=== PATIENT | female | born 1950 | race Caucasian/White ===

== ENCOUNTER 2019-12-28 18:31 | Observation (INO) | payer MEDICARE, SELFPAY ==
[2019-12-28 18:43] VITALS: BP 134/75; PULSE 79; RESP 14; TEMP 37.1; O2SAT 95; BMI 28.3
[2019-12-28 19:06] LABS: Basophils # 0.1 10^3/uL (0.0-0.1); Basophils % 0.9 %; Eosinophils # 0.3 10^3/uL (0.0-0.8); Eosinophils % 2.3 %; Hematocrit 51.3 % (37.0-47.0); Hemoglobin 16.8 g/dL (11.5-15.3); Lymphocytes # 2.5 10^3/uL (0.8-4.8); Lymphocytes % 19.9 %; Mean Corpuscular HGB Conc 32.7 g/dL (30.0-36.0); Mean Corpuscular Hemoglobin 36.8 pg (28.0-34.0); Mean Corpuscular Volume 112.3 fL (81-99); Mean Platelet Volume 9.2 fL (7.4-10.4); Monocytes % 8.1 %; Neutrophils # 8.4 10^3/uL (1.8-7.7); Neutrophils % 68.4 %; Nucleated Red Blood Cells % 0 %; Platelet Count 378 10^3/cmm (130-400); Red Blood Count 4.57 10^6/uL (4.1-5.3); Red Cell Distribution Width 12.1 % (12.1-15.1); White Blood Count 12.3 10^3/uL (4.0-10.0)
[2019-12-28 19:18] LABS: Alanine Aminotransferase 35 U/L (0-33); Alkaline Phosphatase 129 IU/L (35-105); Aspartate Amino Transferase 52 U/L (0-32); Blood Urea Nitrogen 5 mg/dL (8-23); Calcium 9.8 mg/dL (8.5-10.5); Carbon Dioxide 28 mmol/L (22-29); Chloride 102 mmol/L (98-107); Creatinine Clr Calc Pharmacy 68.1498; Globulin 2.7 g/dL (1.3-4.6); Glomerular Filtration Rate 99.1 mL/min (90-130); Glucose 108 mg/dL (65-115); Lipase 23 U/L (13-60); Osmolality Calculated 292 mOsm/kg (285-295); Sodium 143 mmol/L (136-145); Total Protein 7.7 g/dL (6.6-8.7)
[2019-12-28 19:29] LABS: HCG, Serum Qual Negative (Negative)
[2019-12-28 21:22] VITALS: BP 160/83; PULSE 73; RESP 20; O2SAT 97
[2019-12-28 21:40] VITALS: BP 160/83; PULSE 84; RESP 16; O2SAT 98
--- NOTE | 2019-12-28 21:46 | USR_ITS ---
PROCEDURE INFORMATION: Exam: US Abdomen Limited, Right Upper Quadrant Exam date and time: 12/28/2019 10:31 PM Age: 69 years old Clinical indication: Abdominal pain; Acute; Patient HX: PT states was dx'd with hep c. Last test done was neg. TECHNIQUE: Imaging protocol: Real-time ultrasound of the abdomen with image documentation. Examination was focused on the right upper quadrant. COMPARISON: CT abdomen pelvis w con* [id number] 12/28/2019 10:44 PM FINDINGS: Liver: Again note of diffuse fatty infiltration of the liver with hepatomegaly. Slow monophasic hepatopetal portal venous flow. Antegrade hepatic venous flow right hepatic lobe. Gallbladder: Gallbladder contains a small amount of crystalline debris and/or sludge. No gallbladder wall thickening or pericholecystic fluid. Common bile duct: Mid common bile duct measurement sonographically 10 mm. Pancreas: Not adequately imaged due to bowel gas. Right kidney: Unremarkable. No mass. No hydronephrosis. Dimensions of the right kidney 11.9 cm x 4.4 cm x 5.1 cm. Other findings: Please review separate CT abdomen and pelvis examination report same date. US/US gall bladder [id number] IMPRESSION: 1. Gallbladder contains a small amount of sludge and/or crystalline debris. 2. Hepatomegaly with diffuse fatty infiltration. 3. Common bile duct ectasia.
--- NOTE | 2019-12-28 21:46 | CTR_ITS ---
PROCEDURE INFORMATION: Exam: CT Abdomen And Pelvis With Contrast Exam date and time: 12/28/2019 10:36 PM Age: 69 years old Clinical indication: Abdominal pain; Localized; Right upper quadrant (ruq); Prior surgery; Surgery date: 6+ months; Surgery type: Hyst; Patient HX: C/O ruq pain TECHNIQUE: Imaging protocol: Computed tomography of the abdomen and pelvis with intravenous contrast. Radiation optimization: All CT scans at this facility use at least one of these dose optimization techniques: automated exposure control; mA and/or kV adjustment per patient size (includes targeted exams where dose is matched to clinical indication); or iterative reconstruction. Contrast material: OMNI 300; Contrast volume: 95 ml; Contrast route: 20G; COMPARISON: No relevant prior studies available. RADIATION DOSE METRICS: Total DLP: 1082.48 mGy-cm FINDINGS: Liver: Geographic fatty infiltration of the liver with marked hepatomegaly. Small hypodense structure near the dome of the right hepatic lobe too small to characterize definitively at approximately 7 mm. Small cyst near the wander hepatis. Gallbladder and bile ducts: Gallbladder free of cholelithiasis. Common bile duct markedly ectatic measuring approximately upwards of 26 mm and tapering to 14 mm at the mid level with rapid transition at the ampullary of Vater. No visible choledocholithiasis. No pancreatic head mass. No visible ampullary neoplasm. Potential distal common bile duct stricture/stenosis. Pancreas: Pancreas unremarkable. No pancreatic ductal ectasia. Spleen: Mild splenomegaly. Spleen otherwise unremarkable. Adrenals: Normal. No mass. Kidneys and ureters: Simple renal cortical cysts inferior pole right kidney. No hydronephrosis or perinephric fluid bilaterally. No visible nephrolithiasis bilaterally. Left kidney unremarkable. Stomach and bowel: Diverticulosis coli without evidence for diverticulitis. Nonobstructive bowel pattern. No visible adynamic or reactive ileus. Appendix: No evidence of appendicitis. Intraperitoneal space: No visible intraperitoneal ascites. Vasculature: The abdominal aorta is nonaneurysmal but demonstrates moderate arterial sclerotic disease Portal vein patent but with evidence of portal venous hypertension. Perisplenic varices. Lymph nodes: Unremarkable. No enlarged lymph nodes. Bladder: Unremarkable as visualized. Reproductive: Status post hysterectomy. Bones/joints: Age-appropriate degenerative disease of the spine. Soft tissues: Heavy body habitus. CT/CT abdomen pelvis w con* [id number] IMPRESSION: 1. Common bile duct ectasia tapering rapidly at the ampulla of Vater. Potential distal common bile duct stricture/stenosis. No visible choledocholithiasis. 2. Marked hepatomegaly with geographic fatty infiltration in findings of early cirrhosis. 3. Evidence of early portal venous hypertension. 4. Splenomegaly. 5. Diverticulosis coli without visible evidence of diverticulitis. 6. Simple renal cortical cysts inferior pole right kidney. No follow-up recommended. 7. Other nonurgent, nonemergent, chronic, and age related findings as. discussed in text above COMMENTS: Consistent with the [employer]'s Incidental Findings Committee white paper (J Am Clotilde Radiol 2018): Any incidental renal lesion less than 1.0 cm or classified as too small to characterize, or any incidental cystic renal lesion characterized as simple-appearing, is likely benign. No follow-up imaging is recommended for these lesions per consensus recommendations based on imaging criteria. Radiation Dose CTDIVOL = (mGy): DLP = 1082.48 (mGy-cm)
[2019-12-28 21:57] LABS: Urine Appearance SL Hazy (CLEAR); Urine Color Dark Yellow (Yellow); pH Urine 5 (5-7)
[2019-12-28 21:58] LABS: Bilirubin Urine 1+ (NEGATIVE); Blood Urine Neg (Negative); Glucose Urine UA Norm (Normal); Ketones Urine Negative (Negative); Leukocyte Esterase Urine 1+ (Negative); Nitrate Urine Negative (Negative); Protein Urine Neg (Negative); Urobilinogen Urine 1 mg/dL (Negative)
--- NOTE | 2019-12-28 22:02 | W.ED.ABDPA2 ---
HPI - Abdominal Pain General: Chief Complaint: Abdominal Pain Stated Complaint: RUQ pain Time Seen by Provider: 12/28/19 21:23 History of Present Illness: HPI narrative: Ursula is a very nice 69-year-old female who comes in complaining of abdominal pain. Patient's pain is been going on for 1 month and has been intermittent in nature but has been much worse the past few days. She has had nausea vomiting, fevers or chills, diarrhea or constipation, urinary symptoms or otherwise. She states that sitting up and leaning forward makes her pain better. She unaware of anything that makes her pain worse. Patient states that she is not received any work-up for this and is unaware of any thing at home that helps with her pain. She admits she has not tried very much for this at home. Associated Symptoms: Denies chills, coffee ground emesis, constipation, GI cramping, diarrhea, dysuria, fever(s), heartburn, hematochezia, hematuria, hematemesis, melena, nausea, syncope and vomiting Review of Systems Const: Denies: fever(s), chills, body aches, fatigue, malaise or diaphoresis Eyes: Denies: change in vision, blurry vision, blind spots or photophobia ENMT: Denies: throat pain, odynophagia, hoarseness, swelling of lips/tongue, ear or mastoid pain, ear discharge, change in hearing or nasal discharge Card: Denies: chest pain, palpitations, irregular heart rhythm, edema, lightheadedness, syncope, pre-syncope, dyspnea on exertion or orthopnea Resp: Denies: dyspnea, productive cough, non-productive cough, wheezing, hemoptysis or chest congestion GI: Reports: abdominal pain; Denies: nausea, vomiting, hematemesis, coffee ground emesis, heartburn, diarrhea, constipation, GI cramping, hematochezia or melena : Denies: flank pain, dysuria, urinary frequency, urinary urgency or hematuria Musc: Denies: neck pain, back pain, extremity pain, extremity swelling, joint pain, joint swelling, joint redness, joint warmth or joint stiffness Skin/Breast: Denies: rash, pruritus, erythema, skin tenderness or jaundice Neuro: Denies: headache(s), numbness in extremities, weakness in extremities, sensory changes, lack of coordination, difficulty walking, dizziness, vertigo, confusion or Slurred speech present Pratik/Lymph: Denies: easy bruising, easy bleeding, petechiae, purpura or enlarged lymph nodes All/Imm: Denies: urticaria, throat swelling, tongue swelling, facial swelling or acute wheezing PFSH ED PFSH: Medical History (Updated 12/29/19 @ 00:17 by Katelynn Swift) Anxiety Depression Hepatitis C History of breast cancer Hypertension Hypothyroidism Surgical History (Updated 12/28/19 @ 22:04 by Katelynn Swift) H/O: hysterectomy Social History Smoking and tobacco status: never smoked Physical Exam Const: COMMON NORMALS: no acute distress, patient oriented x3, no limitations, healthy appearing and well nourished GENERAL APPEARANCE: cooperative, well kempt and well developed HENMT: COMMON NORMALS: normocephalic, atraumatic, external ears normal, EAC's normal and Normal external nose present HEAD & SCALP: normal to inspection, normocephalic and atraumatic FACE & SINUS: normal facial exam and face symmetric NOSE: Normal external nose present and Normal nares present EXTERNAL EAR: Yes external ears normal EXTERNAL AUDITORY CANAL: EAC's normal MOUTH: Normal oral and palatal mucosa present, lip normal and tongue normal Eye: COMMON NORMALS: Equal, round and reactive pupils present and conjunctivae normal GENERAL EYE: appearance normal, both eyes and all related structures ALIGNMENT: Yes alignment normal PERIORBITAL: periorbital findings normal EYELID: eyelids normal CONJUNCTIVA: Yes conjunctivae normal SCLERA: sclerae normal PUPIL: Yes Equal, round and reactive pupils present Neck/C-Spine: COMMON NORMALS: full ROM, no lymphadenopathy, supple, no meningeal signs and no JVD GENERAL: Yes normal visual inspection and Yes trachea midline Chest: COMMONS NORMALS: normal inspection of the chest and normal palpation of entire chest wall Resp: COMMON NORMALS: normal respiratory effort, No retractions and No use of accessory muscles EFFORT & INSPECTION: Yes able to speak in complete sentences and Yes symmetric chest movement AUSCULTATION: no crackles, no rales, no rhonchi and no wheezes Cardio: COMMON NORMALS: no JVD, regular rate, regular rhythm, S1 normal heart sound present and S2 normal heart sound present RATE: regular rate RHYTHM: regular rhythm HEART SOUNDS: S1 normal heart sound present, S2 normal heart sound present, no click, no gallops, no murmurs, no rubs and abnormal split S2 GI: COMMON NORMALS: No hepatosplenomegaly present PALPATION: Yes Firmness to palpation present (GI), Yes Tenderness to palpation present (GI) Details: RUQ (Moderate to severe), No Guarding due to palpation present (GI), No Rigid due to palpation, Yes No hepatosplenomegaly present, No Hernia present, No Palpable mass present and No Pulsatile mass present : COMMON NORMALS: Yes no CVA tenderness BLADDER/KIDNEY EXAM: Yes no CVA tenderness EXTERNAL FEMALE EXAM: No Hernia present Back/Pelvis: COMMON NORMALS: no CVA tenderness, thoracic and lumbar spine normal to inspection, no thoracic nor lumbar tenderness and thoraco-lumbar ROM normal Extremity: COMMON NORMALS: normal to inspection, full ROM, capillary refill normal, no joint enlargement, no clubbing, cyanosis or edema and no calf tenderness Neuro: COMMON NORMALS: patient oriented x3, CN's II-XII intact bilaterally, moves all extremities, no focal motor deficits and no sensory deficits noted MENINGEAL SIGNS: Yes no meningeal signs SPEECH: speech normal Psych: COMMON NORMALS: mental status grossly normal, Normal thought process present, cooperative, normal affect, speech normal and activity/motor behavior normal APPEARANCE: Yes well kempt SPEECH: Yes normal speech THOUGHT PROCESS: Normal thought process present Skin: COMMON NORMALS: no rashes or lesions noted, turgor normal, no jaundice, no petechiae and no mottling GENERAL SKIN EXAM: no rashes or lesions noted and turgor normal Course ED course: 0115 -Case was again reviewed with Dr. Fernandez he would like the patient to have an MRCP now to help better delineate what needs to be done moving forward. Vital Signs: Vital signs: Vital Signs Temperature 98.7 F 12/28/19 18:43 Pulse Rate 78 12/29/19 01:03 Respiratory Rate 18 12/29/19 01:03 Blood Pressure 124/70 12/29/19 01:03 Pulse Oximetry 96 12/29/19 01:03 MDM - Abdominal Pain MDM Narrative: Medical decision making narrative: Ursula is a nice 69-year-old female who comes in complaining of primarily right upper quadrant epigastric pain for a month. The pain has been intermittent but each time it is returned is become more severe. The patient states now for the past 2 to 3 days the pain has become almost incapacitating. Only sitting up in a certain position makes her pain tolerable. She is had no associated nausea or vomiting or fever. She denies any urinary symptoms or other complaints. The patient CT scan and ultrasound showed a dilated common bile duct but no definitive stone in the common bile duct. Because the patient has intolerable pain and such an abnormality of the common bile duct I have discussed the case with Dr. Fernandez who is agreeable to admission for observation and pain control and he will have an MRCP performed in the morning. Patient does have signs of UTI but her symptoms and location of pain are really not consistent with a UTI causing her pain. Further care be dictated by Dr. Fernandez in the morning. Lab Data: Attestation: I reviewed the patient's lab results. Labs: Lab Results 12/28/19 12/28/19 12/28/19 Range/Units 18:55 18:55 18:55 WBC 12.3 H (4.0-10.0) 10^3/ uL RBC 4.57 (4.1-5.3) 10^6/u L Hgb 16.8 H (11.5-15.3) g/dL Hct 51.3 H (37.0-47.0) % MCV 112.3 H (81-99) fL MCH 36.8 H (28.0-34.0) pg MCHC 32.7 (30.0-36.0) g/dL RDW 12.1 (12.1-15.1) % Plt Count 378 (130-400) 10^3/c mm MPV 9.2 (7.4-10.4) fL Neut % (Auto) 68.4 % Lymph % (Auto) 19.9 % Bos[place] % (Auto) 8.1 % Eos % (Auto) 2.3 % Baso % (Auto) 0.9 % Neut # (Auto) 8.4 H (1.8-7.7) 10^3/u L Lymph # (Auto) 2.5 (0.8-4.8) 10^3/u L Bosque # (Auto) 1.0 H (0.2-0.9) 10^3/u L Eos # (Auto) 0.3 (0.0-0.8) 10^3/u L Baso # (Auto) 0.1 (0.0-0.1) 10^3/u L Nucleated RBC % (a uto) 0 % Nucleated RBCs # 0.0 /100WBC Sodium 143 (136-145) mmol/L Potassium 4.0 (3.5-5.1) mmol/L Chloride 102 (98-107) mmol/L Carbon Dioxide 28 (22-29) mmol/L Anion Gap 17.0 (5-19) BUN 5 L (8-23) mg/dL Creatinine 0.6 (0.5-0.9) mg/dL GFR Calculation 99.1 (90-130) mL/min Glucose 108 (65-115) mg/dL Calculated Osmolal ity 292 (285-295) mOsm/k g Calcium 9.8 (8.5-10.5) mg/dL Total Bilirubin 1.0 (0.15-1.2) mg/dL AST 52 H (0-32) U/L ALT 35 H (0-33) U/L Alkaline Phosphata se 129 H (35-105) IU/L Total Protein 7.7 (6.6-8.7) g/dL Albumin 5.0 (3.5-5.2) g/dL Globulin 2.7 (1.3-4.6) g/dL Lipase 23 (13-60) U/L HCG, Qual Negative (Negative) Urine Color (Yellow) Urine Appearance (CLEAR) Urine pH (5-7) Ur Specific Gravit y (1.005-1.030) Urine Protein (Negative) Urine Glucose (UA) (Normal) Urine Ketones (Negative) Urine Blood (Negative) Urine Nitrate (Negative) Urine Bilirubin (NEGATIVE) Urine Urobilinogen (Negative) mg/dL Ur Leukocyte Ghazal ase (Negative) Urine RBC (0-2) /hpf Urine WBC (0-5) /hpf Ur Squamous Epith Cells (0-5) Urine Bacteria (NONE) Hyaline Casts Urine Mucus 12/28/19 Range/Units 21:40 WBC (4.0-10.0) 10^3/ uL RBC (4.1-5.3) 10^6/u L Hgb (11.5-15.3) g/dL Hct (37.0-47.0) % MCV (81-99) fL MCH (28.0-34.0) pg MCHC (30.0-36.0) g/dL RDW (12.1-15.1) % Plt Count (130-400) 10^3/c mm MPV (7.4-10.4) fL Neut % (Auto) % Lymph % (Auto) % Bosque % (Auto) % Eos % (Auto) % Baso % (Auto) % Neut # (Auto) (1.8-7.7) 10^3/u L Lymph # (Auto) (0.8-4.8) 10^3/u L Bosque # (Auto) (0.2-0.9) 10^3/u L Eos # (Auto) (0.0-0.8) 10^3/u L Baso # (Auto) (0.0-0.1) 10^3/u L Nucleated RBC % (a uto) % Nucleated RBCs # /100WBC Sodium (136-145) mmol/L Potassium (3.5-5.1) mmol/L Chloride (98-107) mmol/L Carbon Dioxide (22-29) mmol/L Anion Gap (5-19) BUN (8-23) mg/dL Creatinine (0.5-0.9) mg/dL GFR Calculation (90-130) mL/min Glucose (65-115) mg/dL Calculated Osmolal ity (285-295) mOsm/k g Calcium (8.5-10.5) mg/dL Total Bilirubin (0.15-1.2) mg/dL AST (0-32) U/L ALT (0-33) U/L Alkaline Phosphata se (35-105) IU/L Total Protein (6.6-8.7) g/dL Albumin (3.5-5.2) g/dL Globulin (1.3-4.6) g/dL Lipase (13-60) U/L HCG, Qual (Negative) Urine Color Dark yellow (Yellow) Urine Appearance Sl hazy (CLEAR) Urine pH 5 (5-7) Ur Specific Gravit y 1.020 (1.005-1.030) Urine Protein Neg (Negative) Urine Glucose (UA) Norm (Normal) Urine Ketones Negative (Negative) Urine Blood Neg (Negative) Urine Nitrate Negative (Negative) Urine Bilirubin 1+ H (NEGATIVE) Urine Urobilinogen 1 H (Negative) mg/dL Ur Leukocyte Ghazal ase 1+ H (Negative) Urine RBC 5-10 H (0-2) /hpf Urine WBC 10-15 H (0-5) /hpf Ur Squamous Epith Cells 0-4 H (0-5) Urine Bacteria 1+ H (NONE) Hyaline Casts 0-4 H Urine Mucus 2+ Imaging Data ^: CT Abd/Pel: Radiologist's impression: [address] [address] [address] Scan Report Signed Patient: Ursula Urbina Unit #: [id number] : 1950 Age/Sex: 69 / F ADM Date: 12/28/19 Loc: ER Room/Bed: Attending Dr: Ordering Provider/Ordering MD: Katelynn Swift DO Date of Service: 12/28/19 Procedure(s): CT abdomen pelvis w con* [id number] Accession Number(s): [id number] Report Number: [id number] PROCEDURE INFORMATION: Exam: CT Abdomen And Pelvis With Contrast Exam date and time: 12/28/2019 10:36 PM Age: 69 years old Clinical indication: Abdominal pain; Localized; Right upper quadrant (ruq); Prior surgery; Surgery date: 6+ months; Surgery type: Hyst; Patient HX: C/O ruq pain TECHNIQUE: Imaging protocol: Computed tomography of the abdomen and pelvis with intravenous contrast. Radiation optimization: All CT scans at this facility use at least one of these dose optimization techniques: automated exposure control; mA and/or kV adjustment per patient size (includes targeted exams where dose is matched to clinical indication); or iterative reconstruction. Contrast material: OMNI 300; Contrast volume: 95 ml; Contrast route: 20G; COMPARISON: No relevant prior studies available. RADIATION DOSE METRICS: Total DLP: 1082.48 mGy-cm FINDINGS: Liver: Geographic fatty infiltration of the liver with marked hepatomegaly. Small hypodense structure near the dome of the right hepatic lobe too small to characterize definitively at approximately 7 mm. Small cyst near the wander hepatis. Gallbladder and bile ducts: Gallbladder free of cholelithiasis. Common bile duct markedly ectatic measuring approximately upwards of 26 mm and tapering to 14 mm at the mid level with rapid transition at the ampullary of Vater. No visible choledocholithiasis. No pancreatic head mass. No visible ampullary neoplasm. Potential distal common bile duct stricture/stenosis. Pancreas: Pancreas unremarkable. No pancreatic ductal ectasia. Spleen: Mild splenomegaly. Spleen otherwise unremarkable. Adrenals: Normal. No mass. Kidneys and ureters: Simple renal cortical cysts inferior pole right kidney. No hydronephrosis or perinephric fluid bilaterally. No visible nephrolithiasis bilaterally. Left kidney unremarkable. Stomach and bowel: Diverticulosis coli without evidence for diverticulitis. Nonobstructive bowel pattern. No visible adynamic or reactive ileus. Appendix: No evidence of appendicitis. Intraperitoneal space: No visible intraperitoneal ascites. Vasculature: The abdominal aorta is nonaneurysmal but demonstrates moderate arterial sclerotic disease Portal vein patent but with evidence of portal venous hypertension. Perisplenic varices. Lymph nodes: Unremarkable. No enlarged lymph nodes. Bladder: Unremarkable as visualized. Reproductive: Status post hysterectomy. Bones/joints: Age-appropriate degenerative disease of the spine. Soft tissues: Heavy body habitus. CT/CT abdomen pelvis w con* [id number] IMPRESSION: 1. Common bile duct ectasia tapering rapidly at the ampulla of Vater. Potential distal common bile duct stricture/stenosis. No visible choledocholithiasis. 2. Marked hepatomegaly with geographic fatty infiltration in findings of early cirrhosis. 3. Evidence of early portal venous hypertension. 4. Splenomegaly. 5. Diverticulosis coli without visible evidence of diverticulitis. 6. Simple renal cortical cysts inferior pole right kidney. No follow-up recommended. 7. Other nonurgent, nonemergent, chronic, and age related findings as. discussed in text above COMMENTS: Consistent with the [employer]'s Incidental Findings Committee white paper (J Am Clotilde Radiol 2018): Any incidental renal lesion less than 1.0 cm or classified as too small to characterize, or any incidental cystic renal lesion characterized as simple-appearing, is likely benign. No follow-up imaging is recommended for these lesions per consensus recommendations based on imaging criteria. Radiation Dose CTDIVOL = (mGy): DLP = 1082.48 (mGy-cm) Dictated By: Tk Mcdowell Signed By: Tk Mcdowell Signed Date/Time: 12/28/192317 DD/ 16 US: Radiologist's impression: [facility] [address] [place] [address] Ultrasound Report Signed Patient: Ursula Urbina Unit #: [id number] : 1950 Age/Sex: 69 / F ADM Date: 12/28/19 Loc: ER Room/Bed: Attending Dr: Ordering Provider/Ordering MD: Katelynn Swift DO Date of Service: 12/28/19 Procedure(s): US gall bladder [id number] Accession Number(s): [id number] Report Number: [id number] PROCEDURE INFORMATION: Exam: US Abdomen Limited, Right Upper Quadrant Exam date and time: 12/28/2019 10:31 PM Age: 69 years old Clinical indication: Abdominal pain; Acute; Patient HX: PT states was dx'd with hep c. Last test done was neg. TECHNIQUE: Imaging protocol: Real-time ultrasound of the abdomen with image documentation. Examination was focused on the right upper quadrant. COMPARISON: CT abdomen pelvis w con* [id number] 12/28/2019 10:44 PM FINDINGS: Liver: Again note of diffuse fatty infiltration of the liver with hepatomegaly. Slow monophasic hepatopetal portal venous flow. Antegrade hepatic venous flow right hepatic lobe. Gallbladder: Gallbladder contains a small amount of crystalline debris and/or sludge. No gallbladder wall thickening or pericholecystic fluid. Common bile duct: Mid common bile duct measurement sonographically 10 mm. Pancreas: Not adequately imaged due to bowel gas. Right kidney: Unremarkable. No mass. No hydronephrosis. Dimensions of the right kidney 11.9 cm x 4.4 cm x 5.1 cm. Other findings: Please review separate CT abdomen and pelvis examination report same date. US/US gall bladder [id number] IMPRESSION: 1. Gallbladder contains a small amount of sludge and/or crystalline debris. 2. Hepatomegaly with diffuse fatty infiltration. 3. Common bile duct ectasia. Dictated By: Tk Mcdowell Signed By: Tk Mcdowell Signed Date/Time: 12/28/192352 DD/ 51 EKG Data ^: EKG 1: Attestation: I personally reviewed and interpreted this EKG as follows: EKG interpretation date: 12/28/19 EKG interpretation time: 23:04 Interpretation: Normal sinus rhythm at 72 beats a minute, no acute ST-T wave changes. Discharge Plan Discharge Patient Disposition: Placed in Observation Admit Provider: Jan Fernandez Clinical Impression: Intractable generalized abdominal pain, Common bile duct dilatation Condition: Stable Referrals: Aleksandr Farr MD [Primary Care Provider] - Coding Level of Care Code ED [place] Spray Unit Adjuster for Chg Fwd Exam Comprehensive
[2019-12-28 22:09] LABS: Bacteria Urine 1+; Hyaline Casts Urine 0-4; Mucus Urine 2+; Squamous Epithelial Cell Urine 0-4 (0-5)
[2019-12-28 22:16] VITALS: RESP 16; O2SAT 99
[2019-12-28] MEDS: morphine 4 mg/mL SDV 1 mL IVP (22:16)
[2019-12-28] MEDS: ondansetron 2 mg/ML SDV 2 mL 4 MG IVP (22:16)
[2019-12-28] MEDS: sodium chloride 0.9% 1,000 ML 999 ML IV (22:17)
[2019-12-28 22:21] VITALS: BP 123/67; PULSE 75; RESP 16; O2SAT 96
[2019-12-28] MEDS: iohexol 300 mg/mL 100 mL Btl IV (22:54)
[2019-12-28 23:35] VITALS: BP 123/67; PULSE 88; RESP 16; O2SAT 94
[2019-12-29] VITALS (11 sets, daily range): BP systolic 107–133; BP diastolic 64–74; PULSE 62–78; RESP 14–18; TEMP 36.6–36.8; O2SAT 93–98
[2019-12-29] MEDS: cefTRIAXone 1,000 MG in sodium chloride 0.9% (plus) 50 ML 100 MG IV (00:28)
[2019-12-29] MEDS: HYDROmorphone 1 mg/mL INJ 1 mL 0.5 MG IVP (00:43)
--- NOTE | 2019-12-29 00:57 | MRR_ITS ---
PROCEDURE INFORMATION: Exam: MR Abdomen Without Contrast Exam date and time: 12/29/2019 2:10 AM Age: 69 years old Clinical indication: Abdominal pain; Localized; Right upper quadrant (ruq); Additional info: Common bile duct enlargement on ultrasound and CT TECHNIQUE: Imaging protocol: MR of the abdomen without contrast. COMPARISON: CT abdomen pelvis w con* [id number] 12/28/2019 10:44 PM FINDINGS: Liver: There is inhomogeneous hepatic parenchyma compatible with fatty infiltration. Gallbladder and bile ducts: There is some intermediate signal intensity seen within the dependent portion of the gallbladder compatible with some gallbladder sludge. The common bile duct measures approximately 18 mm in its midportion appearing to taper to normal caliber near the ampulla. There is no evidence for choledocholithiasis. Pancreas: Unremarkable. No ductal dilation. Spleen: Unremarkable. No splenomegaly. Adrenals: Unremarkable. No mass. Kidneys and ureters: There is a 2.5 cm cystic mass seen on the lower pole of the right kidney. A contiguous 12 mm cyst is seen. Stomach and bowel: Visualized stomach and intestines are unremarkable. Intraperitoneal space: No free fluid. Arteries: No abdominal aortic aneurysm. Bones/joints: Unremarkable. Soft tissues: Unremarkable. MR/MR MRCP [id number] IMPRESSION: 1. There is a prominent common bile duct again seen measuring up to 18 mm in its midportion but appearing to tapering to normal caliber near the ampulla. There is no evidence for choledocholithiasis or extrinsic masses. 2. Fatty infiltration of the liver 3. Simple appearing cysts seen within the right kidney, the largest measuring 2.5 cm. No further workup needed. 4. Intermediate signal intensity material seen in the dependent portion of the gallbladder compatible with some gallbladder sludge.
[2019-12-29] MEDS: piperacillin-tazobactam 3.375 GM in sodium chloride 0.9% (plus) 50 ML IV ×2 (01:07→12:14)
[2019-12-29 01:32] LABS: Lactic Sepsis W/Reflex 0.7 mmol/L (0.5-2.2)
--- NOTE | 2019-12-29 04:28 | P.HP_ITS ---
Providers/Chief Complaint Primary Care Provider: Aleksandr Farr MD Chief Complaint: RUQ pain History of Present Illness Ursula Urbina is a 69 year old female who does not have significant past medical history came in with chief complaint of abdominal pain. Patient is stating that her symptoms started 1 month ago with right upper quadrant area pain which she is describing as sharp stabbing pain which gets worse on movement, she has not noticed any worsening of this pain with food, this pain would radiate towards her right shoulder, she has not noticed any fever, nausea vomiting or diarrhea. She denies any previous history of gallstones. She is endorsing history of irritable bowel syndrome. She does not smoke but drinks 3- 4 beers or whiskey 4-5 times a week. No recent traveling or camping. Diagnostics in the ER revealed normal hemodynamics, mild leukocytosis, abnormal transaminases with high alkaline phosphatase, MRCP was obtained which showed biliary duct dilation 18 mm in its midportion, no evidence of choledoc holithiasis or extrinsic masses Hepatosplenomegaly Her bilirubin is normal Dr. Fernandez has been notified and consulted Review of Systems Const: Reports: body aches and fatigue; Denies: fever(s) or chills Eyes: Denies: change in vision ENMT: Denies: throat pain Card: Denies: chest pain Resp: Denies: dyspnea GI: Reports: abdominal pain, heartburn, diarrhea, constipation, bloating and GI cramping; Denies: nausea or vomiting : Denies: flank pain or urinary frequency Musc: Denies: neck pain or extremity swelling Skin/Breast: Denies: rash Neuro: Denies: headache(s) or weakness in extremities Psych: Reports: anxiety and depression Endo: Denies: polyuria Pratik/Lymph: Denies: easy bruising All/Imm: Denies: urticaria Medications/Allergies Home Medications Medication Instructions Recorded Confirmed Last Taken Type Ranitidine 150 mg PO DAILY PRN 12/29/19 12/29/19 Unknown History amlodipine 5 mg PO DAILY 12/29/19 12/29/19 12/28/19 08:00 History celecoxib [Celebrex] 200 mg PO DAILY PRN 12/29/19 12/29/19 Unknown History cyclobenzaprine 10 mg PO QID PRN 12/29/19 12/29/19 Unknown History dextromethorphan-guaifenesin 1 tab PO Q12H PRN 12/29/19 12/29/19 Unknown History [Mucinex DM] hydrocodone-acetaminophen 1 tab PO Q8H PRN 12/29/19 12/29/19 Unknown History levothyroxine 150 mcg PO DAILY 12/29/19 12/29/19 12/28/19 08:00 History sertraline 100 mg PO DAILY 12/29/19 12/29/19 12/28/19 08:00 History Allergies Allergy/AdvReac Type Severity Reaction Status Date / Time amitriptyline AdvReac ADR-Confusi Verified 12/29/19 05:22 on PFSH Acute PFSH: Medical History (Updated 12/29/19 @ 06:30 by Robert Vela MD) Anxiety Depression Hepatitis C Self recovered History of breast cancer Infiltrating adenocarcinoma of left breast Hypertension Hypothyroidism Splenomegaly Surgical History H/O: hysterectomy Family History Denies family history of Hyperlipidemia Lung disease Hypertension Stroke Social History (Updated 12/29/19 @ 06:30 by Robert Vela MD) Smoking and tobacco status: never smoked Alcohol intake: current Alcohol use comment: Patient drinks 4-5times a week, 3- 4 drinks of beer or wine Substance/Drug Use: never Household members: family Housing: House Vitals/I&O/Wt Last Vital Signs Temp 98.7 F 12/28/19 18:43 Pulse 72 12/29/19 04:05 Resp 16 12/29/19 04:05 BP 107/74 12/29/19 04:05 Pulse Ox 98 12/29/19 04:05 12/28/19 12/28/19 12/29/19 14:59 22:59 06:59 Intake Total 1100 / 1100 Balance 1100 / 1100 Weight last 48 hrs Weight 77.111 kg Physical Exam Narrative: EXAM NARRATIVE: Head to toe examination Patient is lying comfortably in her bed S1, S2 no tachycardia No signs of heart failure Carmen sign is negative, no CVA tenderness, bowel sound present abdomen is soft nontender visceral obesity Neurologically nonfocal exam EOMI, PERRLA Lungs are clear to auscultation Appropriate mood and affect Skin does not show ischemia or gangrene or ulcer Lower extremity no edema Nonicteric Data : 12/28/19 18:55 12/28/19 18:55 A&P Assessment and plan (1) Intractable generalized abdominal pain: Status: Acute (2) Common bile duct dilatation: Status: Acute (3) Hepatitis C: Status: Acute (4) Portal hypertension: Status: Acute (5) Hepatomegaly: Status: Acute (6) Diverticulosis: Status: Acute (7) Splenomegaly: Status: Acute Additional A&P Information Common bile duct dilation with right upper quadrant discomfort I believe she has hepatic steatosis which is stretching liver capsule with underlying portal hypertension Patient is stating that her hepatitis C self recovered: she never required any treatment She denies history of diabetes MRCP did not reveal choledocholithiasis however CBD dilation noted Carmen sign is negative, gallbladder ultrasound is revealing biliary sludge, I will get HIDA scan N.p.o. IV fluid resuscitation Dr. Fernandez has been consulted No signs of cholangitis, she has received Zosyn, she does not have sepsis, her leukocytosis is most likely stress related We will discontinue antibiotic Check hepatitis B and C panel, A1c Hypothyroidism: Continue levothyroxine 150 mcg per GERD: Continue Protonix 40mg daily Diverticulosis: No active bleed N.p.o. Full code DVT prophylaxis Patient was counseled on cessation of alcohol to prevent alcohol induced liver cirrhosis, I will start her on thiamine folic acid Attestations Medical Necessity Statement*: Anticipating discharge in less than 48 hours currently need HIDA scan to rule out gallstones She has abnormal transaminases without any signs of cholangitis Time Spent in Patient Care: (>than 50% of time spent in counselling and/or direct pt care on unit) . 50 Coding Level of Care Code Acute Skating Rink Ice Maker for Chg Fwd Diagnoses Intractable generalized abdominal pain R10.84 Common bile duct dilatation K83.8 Hepatitis C B19.20 Portal hypertension K76.6 Hepatomegaly R16.0 Diverticulosis K57.90 Splenomegaly R16.1
--- NOTE | 2019-12-29 04:47 | NM_ITS ---
WS: [id number] NUCLEAR MEDICINE HIDA SCAN WITH GALLBLADDER EJECTION FRACTION HISTORY: CBD dilation and biliary sludge COMPARISON: None available. TECHNIQUE: The patient was intravenously injected with 7.4 mCi of TC99m Mebrofenin. Immediate imaging over the right upper quadrant was followed by 5 minute image and additional images for a total of 60 minutes. Normal uptake of radiotracer throughout the liver. Liver is enlarged. Activity identified in the gallbladder at 10 minutes and well distended by 60 minutes. Activity in the proximal small bowel was seen by 40 minutes. Good washout of the radiotracer from the liver by 60 minutes. The patient then drank 8 ounces of Ensure Plus. Ejection fraction at 60 minutes was 79%. Normal GB ej ection fraction is 35-75%. Post fatty meal symptoms: None. NM/NM hepatobiliary w phar* [id number] IMPRESSION: 1. Normal HIDA scan. 2. Normal gallbladder ejection fraction.
[2019-12-29] MEDS: morphine 4 mg/mL SDV 1 mL IVP (05:00)
[2019-12-29] MEDS: dextrose 5%-sod chloride 0.45% 1,000 ML 100 ML IV (05:09)
[2019-12-29 06:52] LABS: Lipase 68 U/L (13-60)
[2019-12-29 07:31] LABS: Estmated Average Glucose 114; Hemoglobin A1C 5.6 % (4.0-6.0)
[2019-12-29 07:38] LABS: Hepatitis B Surface Antigen Non-Reactive (Nonreactive)
[2019-12-29] MEDS: pantoprazole DR 40 mg Tablet PO (08:46)
[2019-12-29] MEDS: levothyroxine 150 mcg Tablet PO (08:46)
[2019-12-29 09:04] LABS: Hepatitis C Virus Antibody Reactive (Nonreactive)
--- NOTE | 2019-12-29 09:51 | PC.CHAP ---
Pastoral Care Encounter/Spiritual Assessment Type of Contact [] Declined charting clerk visit [] Patient/Family/Request visit [] Outpatient visit [] Follow-up visit [] Physician referral [] Code/Alert [x] Routine visit [] Staff referral [] Actively dying [] Patient sleeping [] Family support [] [] Out of room [] Palliative care [] [] Receiving care in room [] Pre-surgical visit [] Trauma [] Long length of stay [] ICU visit [] Other: Relational/Emotional Strength [] Patient feels connected with others/family/visitors/staff [] Distress [] Loneliness/isolation [] Abandonment Spirituality of Patient [] Person of Alondra [] Attends Mosque of their Alondra [] Believes in Prayer [] Reads Bible or Faith materials [] There are Spiritual issues to be addressed Brim Edge Trimmer Interventions [x] Prayer [] Active listening [] Non-anxious presence [] Spiritual/emotional support [] Crisis/trauma care [] Spiritual counseling [] Bereavement support [] Provided bereavement packet [] Provided Bible/devotional materials [] Provided toy/stuffed animal, coloring book to patient or family member [] Provided Communion [] Anointing/[place] [] Salvation [x] Completed spiritual assessment [] Other: Impact on Illness or Injury [] Angry [] Fearful [] Anxious [] Often cries [] Exhaustion [] Unable to work [] Unable to attend baptist [] Unable to walk/stand [] Unable to read [] Unable to drive [] Unable to eat/drink [] Unable to sleep [] Unable to be with family [] Patient intubated [] Other: Summary Patient resting well. Time spent with patient 5 min
[2019-12-29 12:15] LABS: Alanine Aminotransferase 27 U/L (0-33); Albumin Level 3.8 g/dL (3.5-5.2); Alkaline Phosphatase 102 IU/L (35-105); Anion Gap 20.8 (5-19); Aspartate Amino Transferase 47 U/L (0-32); Blood Urea Nitrogen 5 mg/dL (8-23); Calcium 8.6 mg/dL (8.5-10.5); Carbon Dioxide 20 mmol/L (22-29); Chloride 105 mmol/L (98-107); Creatinine Clr Calc Pharmacy 68.1498; Gamma Glutamyl Transferase 124 U/L (5-36); Globulin 2.7 g/dL (1.3-4.6); Glomerular Filtration Rate 99.1 mL/min (90-130); Glucose 115 mg/dL (65-115); Osmolality Calculated 291 mOsm/kg (285-295); Potassium 3.8 mmol/L (3.5-5.1); Sodium 142 mmol/L (136-145); Total Bilirubin 0.7 mg/dL (0.15-1.2); Total Protein 6.5 g/dL (6.6-8.7)
--- NOTE | 2019-12-29 14:52 | P.DS_ITS ---
Discharge Providers Date of Admission: 12/29/19 04:22 Date of Discharge: December 29, 2019 Attending Provider at Admission: Robert Vela MD Attending Provider at Discharge: Robert Vela MD Primary Care Provider: Aleksandr Farr MD Diagnoses at Discharge Discharge Diagnosis (1) Intractable generalized abdominal pain: Status: Acute (2) Common bile duct dilatation: Status: Acute (3) Hepatitis C: Status: Acute Problem details: Self recovered (4) Portal hypertension: Status: Acute (5) Hepatomegaly: Status: Acute (6) Diverticulosis: Status: Acute (7) Splenomegaly: Status: Acute Reason for Visit Reason for Visit: RUQ pain Hospital Course Discharge Summary: This is a 69-year-old female with no significant past medical history, 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 Patient stated that she fell about a month ago, since then she has had intermittent right upper quadrant right rib pain Patient was admitted for concerns for right upper quadrant pain, CT scan of the abdomen showed common bile duct ectasia tapering rapidly at the upper levator, potential distal common bile duct strictures/stenosis, no visible choledocholithiasis, marked hepatomegaly, with geographic fatty infiltration findings of early cirrhosis, evidence of early portal venous hypertension, splenomegaly. MRCP of the abdomen showed prominent common bile duct again seen, measuring 18 mm in its midportion, but appearing to taper to normal caliber near the ampulla, no evidence of choledocholithiasis or extrinsic masses, fatty infiltration of the liver, likely some gallbladder sludge. Patient had a normal HIDA scan, normal gallbladder ejection fraction. White blood cell count admission was 12.3, GGT 124, AST 47, ALT 27, alk phos 102, lipase 68. Patient received IV fluids, antibiotic therapy, patient clinically improved. Likely patient's pain was related to right rib pain after her fall, and some gastritis. She also had evidence of urinary tract infection. Patient was discharged with pain control for her right rib pain, Toradol, instructions for deep breathing exercises after a bruised rib. For gastritis she was discharged on Protonix 40 daily. Lastly patient was found to be hepatitis C positive, with above findings, patient was advised to follow-up with Dr. Starr for treatment for her hepatitis C. Patient is to follow-up with Dr. Fernandez in 1 month. Physical Exam Const: COMMON NORMALS: no acute distress and patient oriented x3 HENMT: COMMON NORMALS: normocephalic HEAD & SCALP: normocephalic Neck/C-Spine: COMMON NORMALS: no JVD Resp: COMMON NORMALS: normal respiratory effort, No retractions, No use of accessory muscles and clear to auscultation bilaterally AUSCULTATION: clear to auscultation bilaterally Cardio: COMMON NORMALS: no JVD, regular rate, regular rhythm, S1 normal heart sound present and S2 normal heart sound present RATE: regular rate RHYTHM: regular rhythm HEART SOUNDS: S1 normal heart sound present and S2 normal heart sound present GI: COMMON NORMALS: Normal to inspection, nondistended, normoactive bowel sounds present, Soft to palpation, no masses and no bruits PALPATION: Yes Soft to palpation and Yes Tenderness to palpation present (GI) Details: RUQ OTHER: Patient has tenderness around lower rib border Extremity: COMMON NORMALS: capillary refill normal, no clubbing, cyanosis or edema, no calf tenderness and no pedal edema Neuro: COMMON NORMALS: patient oriented x3 Psych: COMMON NORMALS: mental status grossly normal Discharge Data Data Completed and Pending: Completed Studies During Hospitalization Category Date Time Status CT abdomen pelvis w con* [id number] Stat Cat Scan 12/28/19 21:46 Completed MR MRCP [id number] Sta t MRI 12/29/19 00:57 Completed NM hepatobiliary w phar* [id number] Rout ine Nuc Med 12/29/19 04:47 Completed US gall bladder 7 [id number] Urgent Ultrasound 12/28/19 21:46 Completed Pending at discharge Category Date Time Status Complete Blood Co unt w/Auto AM LABS Lab 12/30/19 04:00 Ordered Comprehensive Met abolic Panel AM LA BS Lab 12/30/19 04:00 Ordered Labs from last 24 hours 12/29/19 12/29/19 12/29/19 06:15 06:15 06:15 WBC RBC Hgb Hct MCV MCH MCHC RDW Plt Count MPV Neut % (Auto) Lymph % (Auto) [place] % (Auto) Eos % (Auto) Baso % (Auto) Neut # (Auto) Lymph # (Auto) [place] # (Auto) Eos # (Auto) Baso # (Auto) Nucleated RBC % (a uto) Nucleated RBCs # Sodium 142 Potassium 3.8 Chloride 105 Carbon Dioxide 20 L Anion Gap 20.8 H BUN 5 L Creatinine 0.6 GFR Calculation 99.1 Glucose 115 Estimat Average Gl ucose Hemoglobin A1c Calculated Osmolal ity 291 Lactic Acid Calcium 8.6 Total Bilirubin 0.7 Direct Bilirubin 0.20 Indirect Bilirubin 0.50 GGT 124 H AST 47 H ALT 27 Alkaline Phosphata se 102 Total Protein 6.5 L Albumin 3.8 Globulin 2.7 Lipase HCG, Qual Urine Color Urine Appearance Urine pH Ur Specific Gravit y Urine Protein Urine Glucose (UA) Urine Ketones Urine Blood Urine Nitrate Urine Bilirubin Urine Urobilinogen Ur Leukocyte Ghazal ase Urine RBC Urine WBC Ur Squamous Epith Cells Urine Bacteria Hyaline Casts Urine Mucus Hep Bs Antigen Non-reactive Hepatitis C Antibo dy Reactive H 12/29/19 12/29/19 12/29/19 06:15 06:15 01:06 WBC RBC Hgb Hct MCV MCH MCHC RDW Plt Count MPV Neut % (Auto) Lymph % (Auto) [place] % (Auto) Eos % (Auto) Baso % (Auto) Neut # (Auto) Lymph # (Auto) [place] # (Auto) Eos # (Auto) Baso # (Auto) Nucleated RBC % (a uto) Nucleated RBCs # Sodium Potassium Chloride Carbon Dioxide Anion Gap BUN Creatinine GFR Calculation Glucose Estimat Average Gl ucose 114 Hemoglobin A1c 5.6 Calculated Osmolal ity Lactic Acid 0.7 Calcium Total Bilirubin Direct Bilirubin Indirect Bilirubin GGT AST ALT Alkaline Phosphata se Total Protein Albumin Globulin Lipase 68 H HCG, Qual Urine Color Urine Appearance Urine pH Ur Specific Gravit y Urine Protein Urine Glucose (UA) Urine Ketones Urine Blood Urine Nitrate Urine Bilirubin Urine Urobilinogen Ur Leukocyte Ghazal ase Urine RBC Urine WBC Ur Squamous Epith Cells Urine Bacteria Hyaline Casts Urine Mucus Hep Bs Antigen Hepatitis C Antibo dy 12/28/19 12/28/19 12/28/19 21:40 18:55 18:55 WBC RBC Hgb Hct MCV MCH MCHC RDW Plt Count MPV Neut % (Auto) Lymph % (Auto) [place] % (Auto) Eos % (Auto) Baso % (Auto) Neut # (Auto) Lymph # (Auto) [place] # (Auto) Eos # (Auto) Baso # (Auto) Nucleated RBC % (a uto) Nucleated RBCs # Sodium 143 Potassium 4.0 Chloride 102 Carbon Dioxide 28 Anion Gap 17.0 BUN 5 L Creatinine 0.6 GFR Calculation 99.1 Glucose 108 Estimat Average Gl ucose Hemoglobin A1c Calculated Osmolal ity 292 Lactic Acid Calcium 9.8 Total Bilirubin 1.0 Direct Bilirubin Indirect Bilirubin GGT AST 52 H ALT 35 H Alkaline Phosphata se 129 H Total Protein 7.7 Albumin 5.0 Globulin 2.7 Lipase 23 HCG, Qual Negative Urine Color Dark yellow Urine Appearance Sl hazy Urine pH 5 Ur Specific Gravit y 1.020 Urine Protein Neg Urine Glucose (UA) Norm Urine Ketones Negative Urine Blood Neg Urine Nitrate Negative Urine Bilirubin 1+ H Urine Urobilinogen 1 H Ur Leukocyte Ghazal ase 1+ H Urine RBC 5-10 H Urine WBC 10-15 H Ur Squamous Epith Cells 0-4 H Urine Bacteria 1+ H Hyaline Casts 0-4 H Urine Mucus 2+ Hep Bs Antigen Hepatitis C Antibo dy 12/28/19 18:55 WBC 12.3 H RBC 4.57 Hgb 16.8 H Hct 51.3 H MCV 112.3 H MCH 36.8 H MCHC 32.7 RDW 12.1 Plt Count 378 MPV 9.2 Neut % (Auto) 68.4 Lymph % (Auto) 19.9 [place] % (Auto) 8.1 Eos % (Auto) 2.3 Baso % (Auto) 0.9 Neut # (Auto) 8.4 H Lymph # (Auto) 2.5 [place] # (Auto) 1.0 H Eos # (Auto) 0.3 Baso # (Auto) 0.1 Nucleated RBC % (a uto) 0 Nucleated RBCs # 0.0 Sodium Potassium Chloride Carbon Dioxide Anion Gap BUN Creatinine GFR Calculation Glucose Estimat Average Gl ucose Hemoglobin A1c Calculated Osmolal ity Lactic Acid Calcium Total Bilirubin Direct Bilirubin Indirect Bilirubin GGT AST ALT Alkaline Phosphata se Total Protein Albumin Globulin Lipase HCG, Qual Urine Color Urine Appearance Urine pH Ur Specific Gravit y Urine Protein Urine Glucose (UA) Urine Ketones Urine Blood Urine Nitrate Urine Bilirubin Urine Urobilinogen Ur Leukocyte Ghazal ase Urine RBC Urine WBC Ur Squamous Epith Cells Urine Bacteria Hyaline Casts Urine Mucus Hep Bs Antigen Hepatitis C Antibo dy Vitals: Last Vital Signs Temp 97.8 F 12/29/19 12:10 Pulse 77 12/29/19 12:10 Resp 16 12/29/19 12:10 BP 127/64 12/29/19 12:10 Pulse Ox 93 12/29/19 12:10 Discharge Plan Discharge Patient Disposition: Home, Self-Care Condition: Stable Prescriptions: New ketorolac 10 mg tablet 10 mg PO Q8H PRN (Reason: pain) 3 Days Qty: 12 RF: 0 Bactrim DS 800-160 mg tablet 1 tab PO BID 5 Days Qty: 10 RF: 0 Protonix 40 mg tablet,delayed release (DR/EC) 40 mg PO DAILY 30 Days Qty: 30 RF: 0 Continued cyclobenzaprine 10 mg Tablet 10 mg PO QID PRN (Reason: Muscle Spasm) RF: 0 sertraline 100 mg Tablet 100 mg PO DAILY RF: 0 hydrocodone-acetaminophen 7.5-325 mg Tablet 1 tab PO Q8H PRN (Reason: Pain) RF: 0 Mucinex DM 30-600 mg Tablet Extended Release 12 Hr 1 tab PO Q12H PRN (Reason: Congestion) RF: 0 levothyroxine 150 mcg Capsule 150 mcg PO DAILY RF: 0 amlodipine tablet 5 mg PO DAILY RF: 0 Discontinued celecoxib [Celebrex] 200 mg Capsule 200 mg PO DAILY PRN (Reason: Pain) RF: 0 Ranitidine tablet 150 mg PO DAILY PRN (Reason: Indigestion) RF: 0 Discharge Orders: Discharge Order (Routine); Ordered 12/29/19 Ordered By: Gagan Quevedo Other Ambulatory Orders: Comprehensive Metabolic Panel (Routine) Timeframe: 3 Days Facility: [facility] - Location: Lab - Main Lab Ordered By: Gagan Quevedo Referrals: Abdias Starr MD [Physician] - 1 month (hep c treatment) Jan Fernandez MD [Physician] - 1 month Aleksandr Farr MD [Primary Care Provider] - Discharge Diet: GI Soft Discharge Activity: Resume usual activity Patient Instructions: Hepatitis C, Rib Fracture (DC) Activity Restrictions/Additional Instructions: -UTI take bactrim -follow up with Dr. Starr in 1-2 weeks for hep c treatment -For bruise rib please use Toradol as prescribed Discharge Attestations Time Spent in Discharge Care*: less than 30 min Quality Metrics Clinical Quality Measures During this hospital stay, did patient experience: None Coding Level of Care Code Acute Buffer Inflated Pad for Chg Fwd Diagnoses Intractable generalized abdominal pain R10.84 Common bile duct dilatation K83.8 Hepatitis C B19.20 Portal hypertension K76.6 Hepatomegaly R16.0 Diverticulosis K57.90 Splenomegaly R16.1
--- NOTE | 2020-01-05 18:13 | P.CONIM_ITS ---
Providers/Reason For Consult Consulting Physican/Specialty*: Robert Vela MD Reason for Consult*: Right upper quadrant pain Attending Physician: Robert Vela MD Primary Care Provider: Aleksandr Farr MD History of Present Illness History of Present Illness Date of service: 12/29/2019 Ursula Urbina is a 69 year old female who presented to the ER with severe right-sided abdominal pain which started about a month ago. Patient states that the pain is not associated with food intake and she is usually able to eat whatever she wants. Patient denies any nausea, vomiting, constipation or diarrhea. She had slightly dilated CBD duct noted measuring 18 mm on initial imaging with elevated liver enzymes and therefore MRCP was obtained which showed dilated duct with no evidence of obstruction. Patient states that she fell about a month ago and developed a bruise and has been hurting since then. Review of Systems General: Reports: 10 or more systems reviewed and unremarkable except in HPI and below Meds/Allergies Home Medications and Allergies Home Medications Medication Instructions Recorded Confirmed Last Taken Type Mucinex DM 1 tab PO Q12H PRN 12/29/19 12/29/19 Unknown History amlodipine 5 mg PO DAILY 12/29/19 12/29/19 12/28/19 08:00 History cyclobenzaprine 10 mg PO QID PRN 12/29/19 12/29/19 Unknown History hydrocodone-acetaminophen 1 tab PO Q8H PRN 12/29/19 12/29/19 Unknown History levothyroxine 150 mcg PO DAILY 12/29/19 12/29/19 12/28/19 08:00 History pantoprazole [Protonix] 40 mg PO DAILY 30 Days #30 tab 12/29/19 Unknown Rx sertraline 100 mg PO DAILY 12/29/19 12/29/19 12/28/19 08:00 History Allergies Allergy/AdvReac Type Severity Reaction Status Date / Time amitriptyline AdvReac ADR-Confusi Verified 12/29/19 05:22 on PFSH Acute PFSH: Medical History (Updated 01/05/20 @ 18:16 by Jan Fernandez MD) Anxiety Depression Hepatitis C Self recovered History of breast cancer Infiltrating adenocarcinoma of left breast Hypertension Hypothyroidism Splenomegaly Surgical History H/O: hysterectomy Family History Denies family history of Hyperlipidemia Lung disease Hypertension Stroke Social History (Updated 12/29/19 @ 06:30 by Robert Vela MD) Smoking and tobacco status: never smoked Alcohol intake: current Household members: family Housing: House Vitals/I&O/Wt Last Vital Signs Temp 97.8 F 12/29/19 15:29 Pulse 77 12/29/19 15:29 Resp 16 12/29/19 15:29 BP 127/64 12/29/19 15:29 Pulse Ox 93 12/29/19 15:29 Physical Exam Narrative: EXAM NARRATIVE: HEENT: Normocephalic Eye: Sclera /conjunctiva normal Respiratory and chest: Bilateral clear breath sounds on auscultation Cardiovascular: Normal S1 and S2 heart sounds Abdomen: Soft to palpation, tender right upper quadrant and right flank Neurological: Oriented to place person and time Skin: Intact, no lesions appreciated on gross exam A&P Assessment and plan (1) Intractable generalized abdominal pain: 69-year-old female with right upper quadrant pain worse with physical activity and when she gets out of bed. Not associated with food intake or bowel function. She is currently hemodynamically stable. Her HIDA scan was negative. I suspect her abdominal pain is most likely musculoskeletal. Patient is keen to go home due to concerns about her 's health. At this point no further surgical intervention required Follow-up PRN Status: Resolved Coding Level of Care Code Acute Cleaning Custodian for Chg Fwd Diagnoses Intractable generalized abdominal pain R10.84
== END 2019-12-29 15:29 | disposition home or self-care (01) ==
LOC: ER 12-29 00:17 → MEDSURG 12-29 01:34
PROVIDERS: Emergency Medicine; Family Medicine; Admitting Provider Internal Medicine; PCP Family Medicine; Visit Provider Internal Medicine
DX: R10.84 Generalized abdominal pain (principal); K83.8 Other specified diseases of biliary tract; B19.20 Unspecified viral hepatitis C without hepatic coma; K76.6 Portal hypertension; R16.0 Hepatomegaly, not elsewhere classified; K57.90 Diverticulosis of intestine, part unspecified, without perforation or abscess without bleeding; R16.1 Splenomegaly, not elsewhere classified; E03.9 Hypothyroidism, unspecified; K21.9 Gastro-esophageal reflux disease without esophagitis; K57.30 Diverticulosis of large intestine without perforation or abscess without bleeding; F41.9 Anxiety disorder, unspecified; F32.9 Major depressive disorder, single episode, unspecified; I10 Essential (primary) hypertension
CPT/HCPCS: 12345; 36415; 74177; 74181; 76705; 78227; 80053; 81001; 82247; 82248; 82977; 83036; 83605; 83690; 84703; 85025; 86803; 87340; 96365; 96367; 96375; 99284; 99285; A9537; G0378; J0696; J1170; J2270; J2405; J2543; J7030; J7799; Q9967

== ENCOUNTER → 2020-01-10 15:03 | Outpatient (BNVA) | payer MEDICARE, SELFPAY | PROVIDERS: PCP Family Medicine; Visit Provider Internal Medicine | DX: B19.20 Unspecified viral hepatitis C without hepatic coma (principal); R76.8 Other specified abnormal immunological findings in serum; K75.81 Nonalcoholic steatohepatitis (NASH); R16.0 Hepatomegaly, not elsewhere classified; E03.9 Hypothyroidism, unspecified; K83.8 Other specified diseases of biliary tract | CPT/HCPCS: 80053; 80061; 82607; 84443; 85025; 87522 ==

== ENCOUNTER 2020-10-30 14:30 | Outpatient (CLI) | payer MEDICARE, SELFPAY ==
--- NOTE | 2020-10-30 14:49 | MM_ITS ---
WS: [id number] DIAGNOSTIC BILATERAL DIGITAL MAMMOGRAM WITH CAD HISTORY: HX OF BREAST CA COMPARISON: 08/29/2018 and 06/02/2016 TECHNIQUE: Bilateral craniocaudad, mediolateral oblique, and mediolateral views are submitted. Comput er aided detection utilized. Breast composition: There are scattered areas of fibroglandular density. Moderate volume loss in the LEFT breast from prior surgery. Benign calcifications in the central LEFT breast. No suspicious ruperto s or calcifications. No architectural distortion. MM/[id number] IMPRESSION: BI-RADS: 2-Benign FOLLOW UP: 1 Year Follow-up
== END 2020-10-30 14:31 | disposition home or self-care (01) ==
LOC: RADSHAW 14:33
PROVIDERS: PCP Family Medicine; Visit Provider Family Medicine
DX: Z85.3 Personal history of malignant neoplasm of breast (principal); R92.1 Mammographic calcification found on diagnostic imaging of breast
CPT/HCPCS: 77066